=== PATIENT | male | born 1990 ===

== ENCOUNTER 2018-05-02 14:40 | Emergency (ER) | payer SELFPAY ==
[2018-05-02] MEDS ORDERED: Sodium Chloride 0.9% 1,000 ML IV STA (15:15)
--- NOTE | 2018-05-02 15:35 | ED PDOC ---
HPI: Chest Pain Time Seen by Provider: 05/02/18 15:12 Chief Complaint (Nursing): Chest Pain Chief Complaint (Provider): Chest Pain History Per: Patient, Other (friend) Onset/Duration Of Symptoms: Days (x1) Current Symptoms Are (Timing): Still Present Additional Complaint(s): 27 year old male arrives to the ED with a friend, for an evaluation of heavy pressure to his chest associated with difficulty breathing and bilateral eye redness status post eating pork around 10:00 earlier today. His friend states that patient was well last night and did not drink alcohol. No reported numbness , tingling, headache, dizziness, nausea, vomiting, rash, itching, leg pain, sore or swollen throat. No long distance travel, leg pain, or hormone tx. Denies drugs. PMD: none provided Past Medical History Reviewed: Historical Data, Nursing Documentation, Vital Signs Vital Signs: Last Vital Signs Temp 98 F 05/02/18 14:45 Pulse 110 H 05/02/18 15:01 Resp 22 05/02/18 14:45 BP 130/65 05/02/18 14:45 Pulse Ox 96 05/02/18 16:34 - Medical History PMH: No Chronic Diseases - Surgical History Surgical History: No Surg Hx - Family History Family History: States: Unknown Family Hx - Social History Current smoker - smoking cessation education provided: Yes Alcohol: Occasional Drugs: Denies - Allergies Allergies/Adverse Reactions: Allergies Allergy/AdvReac Type Severity Reaction Status Date / Time No Known Allergies Allergy Verified 05/02/18 14:48 Review of Systems ROS Statement: Except As Marked, All Systems Reviewed And Found Negative Eyes: Positive for: Redness (bilateral) ENT: Negative for: Throat Pain, Throat Swelling Cardiovascular: Positive for: Chest Pain (upper) Respiratory: Positive for: Shortness of Breath Gastrointestinal: Negative for: Nausea, Vomiting Musculoskeletal: Negative for: Leg Pain Skin: Negative for: Rash (or itching) Neurological: Negative for: Numbness (or tingling), Headache, Dizziness Physical Exam - Reviewed Nursing Documentation Reviewed: Yes Vital Signs Reviewed: Yes - Physical Exam Appears: Positive for: Non-toxic, No Acute Distress Head Exam: Positive for: ATRAUMATIC, NORMAL INSPECTION, NORMOCEPHALIC Skin: Positive for: Normal Color Eye Exam: Positive for: EOMI, PERRL, Conjunctival injection (bilaterally). Negative for: Periorbital swelling, Periorbital tenderness ENT: Positive for: Normal ENT Inspection. Negative for: Pharyngeal Erythema, Tonsillar Swelling Neck: Positive for: Normal, Painless ROM, Supple Cardiovascular/Chest: Positive for: Regular Rate, Rhythm, Other (sternal tenderness) Respiratory: Positive for: Normal Breath Sounds. Negative for: Wheezing, Respiratory Distress Gastrointestinal/Abdominal: Positive for: Normal Exam, Soft. Negative for: Tenderness Back: Positive for: Normal Inspection. Negative for: L CVA Tenderness, R CVA Tenderness Extremity: Positive for: Normal ROM (upper/lower with 5/5 strength). Negative for: Tenderness, Pedal Edema Neurologic/Psych: Positive for: Alert, Oriented. Negative for: Motor/Sensory Deficits, Facial Droop - Laboratory Results Result Diagrams: 05/02/18 15:52 05/02/18 15:52 Interpretation Of Abn Labs: 3.4 k, and mild elevated liver enzymes - ECG ECG: Positive for: Interpreted By Me, Viewed By Me ECG Rhythm: Positive for: Normal QRS, Normal ST Segment, Sinus Rhythm O2 Sat by Pulse Oximetry: 96 (RA) Pulse Ox Interpretation: Normal - Radiology X-Ray: Read By Radiologist X-Ray Interpretation: No Acute Disease - Progress ED Course And Treament: 1831: Stable. AAOx3. Pain free. Tolerated. Alcohol in system. Likely drank previously. Fu with pcp. No acute findings. Liver enzymes mild elevated , fu with pcp or clinic. Medical Decision Making Medical Decision Making: Initial Impression: Chest pain Initial Plan: * EKG * Alcohol serum * CMP * Drug screen, urine * Lipase * Troponin I * Urine dipstick * CBC * D Dimer * PTT * PT * CXR * Pepcid 20mg IVP * NS 1,000ml IV per 1,000mls/hr * Toradol 15mg IVP * Accucheck Time: 1516 --EKG: NSR at 114 BMP. --Accucheck: 91 Time: 1557 --CXR: interpreted by provider. No acute findings. Time: 1620 --Alcohol noted at 29mg/dl. Scribe Attestation: Documented by Michelle Erwin, acting as a scribe for Nehemias Vicotr MD. Provider Scribe Attestation: All medical record entries made by the Scribe were at my direction and personally dictated by me. I have reviewed the chart and agree that the record accurately reflects my personal performance of the history, physical exam, medical decision making, and the department course for this patient. I have also personally directed, reviewed, and agree with the discharge instructions and disposition. Disposition - Clinical Impression Clinical Impression: Chest pain, Alcohol abuse, Elevated liver enzymes, Hypokalemia - Patient ED Disposition Is Patient to be Admitted: No Counseled Patient/Family Regarding: Studies Performed, Diagnosis, Need For Followup - Disposition Referrals: [facility] [Outside] - 05/04/18 Disposition: Routine/Home Disposition Time: 18:32 Condition: STABLE Additional Instructions: Return if not better in 3 days. See your doctor in 3 days for further evaluation for your elevated liver enzymes. Instructions: Chest Pain, Effects of Alcohol on Your Health, Hypokalemia Print Language: ESTONIAN
[2018-05-02 15:57] LABS: BASO # 0.1 K/uL (0.0-0.2); BASO % 0.8 % (0.0-2.0); EOS # 0.1 K/uL (0.0-0.7); EOS % 1.6 % (0.0-4.0); HEMOGLOBIN 16.9 g/dL (12.0-18.0); LYMPH # 1.9 K/uL (1.0-4.3); LYMPH % 22.8 % (20.0-40.0); MEAN CELL VOLUME 92.5 fl (80.0-94.0); MEAN CORPUSCULAR HEMOGLOBIN 33.5 pg (27.0-31.0); MEAN CORPUSCULAR HGB CONC 36.2 g/dL (33.0-37.0); MEAN PLATELET VOLUME 8.4 fl (7.2-11.7); MONO # 0.4 K/uL (0.0-0.8); MONO % 5.1 % (0.0-10.0); NEUT # 5.8 K/uL (1.8-7.0); NEUT % 69.7 % (50.0-75.0); RBC 5.05 Mil/uL (4.40-5.90); WHITE BLOOD COUNT 8.3 K/uL (4.8-10.8)
[2018-05-02 16:22] LABS: ALB/GLOB RATIO 1.4 (1.0-2.1); ALBUMIN 4.3 g/dL (3.5-5.0); CALCIUM 9.7 mg/dL (8.4-10.2); GFR AFRICAN-AMERICAN > 60; GFR NON-AFRICAN AMERICAN > 60; LIPASE 150 U/L (23-300)
[2018-05-02 16:33] LABS: PARTIAL THROMBOPLASTIN TIME 29.5 Seconds (25.6-37.1); PROTHROMBIN TIME 10.8 Seconds (9.8-13.1)
[2018-05-02 16:50] LABS: ALT/SGPT 74 U/L (21-72); AST/SGOT 65 U/L (17-59); BLOOD UREA NITROGEN 18 mg/dl (9-20)
--- NOTE | 2018-05-02 17:10 | RAD ---
Date of service: 05/02/2018 HISTORY: dyspnea COMPARISON: No prior. FINDINGS: LUNGS: No active pulmonary disease. PLEURA: No significant pleural effusion identified, no pneumothorax apparent. CARDIOVASCULAR: Normal. OSSEOUS STRUCTURES: No significant abnormalities. VISUALIZED UPPER ABDOMEN: Normal. OTHER FINDINGS: None. IMPRESSION: No active disease.
[2018-05-02] MEDS ORDERED: Potassium Chloride 20 mEq ER Tab PO STA (18:34)
[2018-05-02 18:53] VITALS: BP 128/72; PULSE 79; RESP 16; TEMP 98.1; O2SAT 97
--- NOTE | 2018-05-04 10:23 | CARD ---
APPROVED REPORT Date of service: 05/02/2018 EKG Measurement Heart [id number] <Conclusion> Sinus tachycardia Otherwise normal ECG
== END 2018-05-02 18:53 | disposition home or self-care (01) ==
LOC: H.ER 14:40
DX: R07.9 Chest pain, unspecified (principal); F10.10 Alcohol abuse, uncomplicated; E87.6 Hypokalemia; R74.8 Abnormal levels of other serum enzymes; F17.200 Nicotine dependence, unspecified, uncomplicated
CPT/HCPCS: 71045; 80053; 82948; 83690; 84484; 85025; 85378; 85610; 85730; 93005; 96374; 96375; 99283; G0480; J1885; J7030